=== PATIENT | female | born 1935 | race Caucasian/White ===

== ENCOUNTER 2017-07-01 17:04 | Inpatient (IN) | payer MEDICARE, MEDICAID ==
[2017-07-01 23:21] VITALS: BMI 27.7
--- NOTE | 2017-07-01 23:49 | CP.PCM.HP ---
History of Present Illness - History of Present Illness History of Present Illness: PCP: Dr Baker Chief Complaint: Confusion/ Left side headache HPI: 82 years old female of [place], here in [place] on vacation, was admitted to the [facility] on 06/25/17 with Confusion, visual hallucination and left side headache, diagnosed with left occipital stroke, was transferred to the [facility] for continued treatment and Physical therapy. She is not confused and refers no headache at present. PMH: HTN; DM I; Arthritis; HLD; Pneumonia: Diabetic Retinopathy; Overactive bladder; Asthma PSH: Cholecystectomy 2013; possible bladder lift; Left cataract surgery 05/27/17 SH: Former smoker; No ETOH; No ilegal drug use; live in [place] FH: States: No known family hx Allergies: NKDA Medication: Reviewed Present on Admission - Present on Admission Any Indicators Present on Admission: No History of DVT/PE: No History of Uncontrolled Diabetes: No Urinary Catheter: No Decubitus Ulcer Present: No Review of Systems - Constitutional Constitutional: Headache. absent: Chills, Fever - EENT Eyes: Requires Corrective Lenses. absent: Diplopia, Floaters, Sees Flashes Ears: absent: Decreased Hearing, Ear Discharge, Tinnitus Nose/Mouth/Throat: Epistaxis. absent: Nasal Congestion, Sinus Pain, Sinus Pressure, Sore Throat, Neck Mass - Cardiovascular Cardiovascular: absent: Chest Pain, Dyspnea, Edema - Respiratory Respiratory: absent: Cough, Dyspnea, Wheezing, Pain on Inspiration - Gastrointestinal Gastrointestinal: Diarrhea. absent: Abdominal Pain, Constipation, Nausea, Vomiting - Genitourinary Genitourinary: absent: Dysuria, Flank Pain, Hematuria, Urinary Frequency - Musculoskeletal Musculoskeletal: Arthralgias, Back Pain. absent: Myalgias - Integumentary Integumentary: absent: Pruritus, Rash, Skin Ulcer, Sores, Striae, Swelling - Neurological Neurological: Confusion, Dizziness, Headaches. absent: Focal Weakness - Psychiatric Psychiatric: absent: Anxiety, Depression, Panic Attacks - Endocrine Endocrine: absent: Palpitations, Polydipsia, Polyphagia, Polyuria - Hematologic/Lymphatic Hematologic: absent: Easy Bleeding, Easy Bruising Past Patient History - Infectious Disease Hx of Infectious Diseases: None - Past Medical History & Family History Past Medical History?: Yes - Past Social History Smoking Status: Former Smoker Chewing Tobacco Use: No Cigar Use: No Alcohol: None Drugs: Denies Home Situation {Lives}: With Family - CARDIAC Hx Hypercholesterolemia: Yes Hx Hypertension: Yes - PULMONARY Hx Chronic Obstructive Pulmonary Disease (COPD): Yes - NEUROLOGICAL Hx Neurological Disorder: Yes HX Cerebrovascular Accident: Yes - HEENT Hx HEENT Problems: Yes (diabetic retinopathy) - RENAL Hx Chronic Kidney Disease: Yes Other/Comment: bladder muscle dysfunction, overactive bladder - ENDOCRINE/METABOLIC Hx Diabetes Mellitus Type 2: Yes (NIDDM) - HEMATOLOGICAL/ONCOLOGICAL Hx Anemia: Yes - INTEGUMENTARY Other/Comment: nail disorder, dermal mycosis, hx of facial abcess, 1cm round scab to lle - MUSCULOSKELETAL/RHEUMATOLOGICAL Hx Falls: No - GASTROINTESTINAL Hx Gastrointestinal Disorders: Yes Hx Gall Bladder Disease: Yes (cholecystectomy) - GENITOURINARY/GYNECOLOGICAL Hx Hematuria: Yes Hx Urinary Tract Infection: Yes (multiple within the last 5 yrs) - PSYCHIATRIC Hx Psychophysiologic Disorder: No Hx Substance Use: No - SURGICAL HISTORY Hx Cataract Extraction: Yes Hx Cholecystectomy: Yes (2013) Other/Comment: possible bladder lift, daughter unsure of procedure - ANESTHESIA Hx Anesthesia: Yes Hx Anesthesia Reactions: No Hx Malignant Hyperthermia: No Meds Allergies/Adverse Reactions: Allergies Allergy/AdvReac Type Severity Reaction Status Date / Time No Known Allergies Allergy Verified 07/01/17 23:21 Physical Exam - Constitutional Appears: No Acute Distress - Head Exam Head Exam: ATRAUMATIC, NORMAL INSPECTION, NORMOCEPHALIC - Eye Exam Eye Exam: EOMI, Normal appearance - ENT Exam ENT Exam: Mucous Membranes Moist, Normal Exam, Normal External Ear Exam - Neck Exam Neck exam: Positive for: Full Rom, Normal Inspection. Negative for: Lymphadenopathy, Tenderness - Respiratory Exam Respiratory Exam: Clear to Auscultation Bilateral. absent: Rales, Rhonchi, Wheezes - Cardiovascular Exam Cardiovascular Exam: REGULAR RHYTHM, RRR, +S1, +S2. absent: Gallop - GI/Abdominal Exam GI & Abdominal Exam: Normal Bowel Sounds, Soft. absent: Mass, Organomegaly, Tenderness - Rectal Exam Rectal Exam: Deferred - Extremities Exam Extremities exam: Positive for: full ROM, normal inspection. Negative for: calf tenderness, joint swelling, pedal edema - Back Exam Back exam: NORMAL INSPECTION. absent: CVA tenderness (L), CVA tenderness (R) - Neurological Exam Neurological exam: Alert, CN II-XII Intact, Oriented x3, Reflexes Normal - Psychiatric Exam Psychiatric exam: Normal Affect, Normal Mood - Skin Skin Exam: Dry, Intact, Normal Color, Warm Results - Imaging and Cardiology CT scan - chest Status: Report reviewed by me Additional comment: Ct head 06/25/17 Negative hemorrhage. large area of cerebral edema in L occipital lobe, represent an area of infarction, however, underlying mass w/ vasogenic edema possible MRI - head Status: Report reviewed by me Additional comment: MRI brain 06/25/17 Apparent hemorrhage within L posterior temporoparietal watershed zone, restricted diffusion & small rim is surrounding vasogenic white matter edema, chronic white matter ischemic changes, few scattered chronic bilateral basal nuclei lacunar type infarcts Assessment & Plan - Assessment and Plan (Free Text) Assessment: #. Left Ocipital lobe Stroke with slight hemorhagic conversion #. DM II #. UTI #. Asthma Plan: 82 years old female of [place], admitted to the [facility] on 06/25/17 with Confusion, visual hallucination and left side headache, diagnosed with left occipital stroke, was transferred to the [facility] for continued treatment and Physical therapy. #. Left Ocipital lobe Stroke with slight hemorrhagic conversion - Consult Dr Srivastava Tip Fixer - Consult Dr Larkin neurology - Provachol - ASA #. DM II - Regular insulin according to accucheck - Metformin - HbA1c 9.6 on 06/27/17 - follow BMP #. HTN - Clonidine - Amlodipine - Lisinopril - Metoprolol - HCTZ #. UTI treated #. Stres ulcer Prophylaxis with Pepcid #. Asthma - Duoneb #. DVT Prophylaxis with SCD #. Code Status: Ful - Date & Time Date: 07/01/17 Time: 23:48
[2017-07-02] MEDS ORDERED: Albuterol-Ipratrop 3 mg / 0.5 (3 ml) UD IH PRN (00:27)
[2017-07-02 06:43] LABS: BASO % 0.3 % (0.0-2.0); HEMOGLOBIN 9.4 g/dL (12.0-16.0); LYMPH # 1.1 K/uL (1.0-4.3); MEAN CELL VOLUME 88.3 fl (81.0-99.0); MEAN CORPUSCULAR HEMOGLOBIN 28.6 pg (27.0-31.0); MEAN CORPUSCULAR HGB CONC 32.3 g/dL (33.0-37.0); MEAN PLATELET VOLUME 8.8 fl (7.2-11.7); MONO # 0.4 K/uL (0.0-0.8); MONO % 2.9 % (0.0-10.0); NEUT # 11.8 K/uL (1.8-7.0); NEUT % 88.8 % (50.0-75.0); PLATELET COUNT 212 K/uL (130-400); RED CELL DISTRIBUTION WIDTH 14.6 % (11.5-14.5); WHITE BLOOD COUNT 13.2 K/uL (4.8-10.8)
[2017-07-02 07:06] LABS: CALCIUM 8.3 mg/dL (8.4-10.2)
[2017-07-02] MEDS: Insulin Regular 100 units/ml SC SCH ×4 (07:14→21:00)
[2017-07-02 09:21] LABS: LYMPHOCYTE 7 % (20-50); MONOCYTE 2 % (0-10); NEUTROPHIL 91 % (42-75); PLATELET ESTIMATE NORMAL (NORMAL); TOTAL CELLS COUNTED 100
[2017-07-02 09:22] LABS: ANISOCYTOSIS SLIGHT; OVALOCYTES SLIGHT
--- NOTE | 2017-07-02 12:39 | CP.PCM.PN ---
Subjective - Date & Time of Evaluation Date of Evaluation: 07/02/17 Time of Evaluation: 12:37 - Subjective Subjective: Ms. Monroy was seen and examined at the bedside. She is alert, oriented and able to answer questions appropriately. She mainly speaks Romansh. She denies any headache, blurred vision, dizziness, numbness, lightheadedness, nausea, or vomiting. She is able to follow simple commands. She verbalize that she feels better with her therapy. There was no untoward events overnight. Objective - Vital Signs/Intake and Output Vital Signs (last 24 hours): Temp Pulse Resp BP Pulse Ox 97.7 F 65 20 120/70 98 07/02/17 07:46 07/02/17 10:00 07/02/17 07:46 07/02/17 10:00 07/02/17 08:50 - Medications Medications: Current Medications Albuterol/Ipratropium (Duoneb 3 Mg/0.5 Mg (3 Ml) Ud) 3 ml IH RQ6 PRN PRN Reason: Shortness of Breath Amlodipine Besylate (Norvasc) 10 mg PO DAILY [facility] Last Admin: 07/02/17 08:47 Dose: Not Given Aspirin (Aspirin Chewable) 81 mg PO DAILY [facility] Last Admin: 07/02/17 08:47 Dose: 81 mg Clonidine HCl (Catapres-Tts3 0.3 Mg/24 Hr) 1 patch TD Q7D@1000 [facility] Last Admin: 07/02/17 10:00 Dose: 1 patch Famotidine (Pepcid) 20 mg PO 1000,2200 [facility] Last Admin: 07/02/17 10:00 Dose: 20 mg Hydrochlorothiazide (Microzide) 12.5 mg PO DAILY [facility] Last Admin: 07/02/17 08:48 Dose: Not Given Insulin Detemir (Levemir) 10 units SC Q12 [facility] Insulin Human Regular (Humulin R) 0 units SC ACHS [facility] PRN Reason: Protocol Last Admin: 07/02/17 12:25 Dose: 3 units Lisinopril (Zestril) 20 mg PO DAILY [facility] Last Admin: 07/02/17 08:48 Dose: Not Given Metformin HCl (Glucophage) 1,000 mg PO BID [facility] Last Admin: 07/02/17 08:47 Dose: 1,000 mg Metoprolol Tartrate (Lopressor) 25 mg PO BID [facility] Last Admin: 07/02/17 08:49 Dose: Not Given - Labs Labs: 07/02/17 05:56 07/02/17 05:56 - Constitutional Appears: No Acute Distress - Head Exam Head Exam: NORMAL INSPECTION - Eye Exam Pupil Exam: PERRL - ENT Exam ENT Exam: Mucous Membranes Moist, Normal Exam - Neck Exam Neck Exam: Full ROM, Normal Inspection. absent: Lymphadenopathy - Respiratory Exam Respiratory Exam: Clear to Ausculation Bilateral, NORMAL BREATHING PATTERN - GI/Abdominal Exam GI & Abdominal Exam: Soft, Normal Bowel Sounds. absent: Tenderness - Rectal Exam Rectal Exam: NORMAL INSPECTION - Extremities Exam Extremities Exam: Full ROM, Normal Capillary Refill - Neurological Exam Neurological Exam: Alert, Awake, CN II-XII Intact, Oriented x3 Neuro motor strength exam: Left Upper Extremity: 4, Right Upper Extremity: 4, Left Lower Extremity: 4, Right Lower Extremity: 4 Additional comments: Neurological unchanged from previous examination.She is able to answer questions appropriately and follow simple commands. Sensation remains intact. Assessment and Plan (1) Hemianopia, homonymous, right Assessment & Plan: Case discussed with Dr. Larkin, continue all current medical, physical, and occupational therapies. There is no new recommendation from neurology. Status: Acute
--- NOTE | 2017-07-02 12:59 | CP.PCM.CON ---
History of Present Illness - History of Present Illness History of Present Illness: 82 year old female with acute Cva with hemorrhagic conversion with history of DM, HTN, CVa pneunoma admitted for acute rehab Review of Systems - EENT Eyes: Other Visual Disturbances Additional comments: headache - Neurological Neurological: Abnormal Gait, Lack of Coordination, Weakness Past Patient History - Infectious Disease Hx of Infectious Diseases: None - Past Medical History & Family History Past Medical History?: Yes - Past Social History Smoking Status: Former Smoker Chewing Tobacco Use: No Cigar Use: No Alcohol: None Drugs: Denies Home Situation {Lives}: With Family - CARDIAC Hx Hypercholesterolemia: Yes Hx Hypertension: Yes - PULMONARY Hx Chronic Obstructive Pulmonary Disease (COPD): Yes Hx Pneumonia: Yes - NEUROLOGICAL Hx Neurological Disorder: Yes HX Cerebrovascular Accident: Yes - HEENT Hx HEENT Problems: Yes (diabetic retinopathy) - RENAL Hx Chronic Kidney Disease: Yes Other/Comment: bladder muscle dysfunction, overactive bladder - ENDOCRINE/METABOLIC Hx Diabetes Mellitus Type 1: Yes - HEMATOLOGICAL/ONCOLOGICAL Hx Anemia: Yes - INTEGUMENTARY Other/Comment: nail disorder, dermal mycosis, hx of facial abcess, 1cm round scab to lle - MUSCULOSKELETAL/RHEUMATOLOGICAL Hx Arthritis: Yes - GASTROINTESTINAL Hx Gastrointestinal Disorders: Yes Hx Gall Bladder Disease: Yes (cholecystectomy) - GENITOURINARY/GYNECOLOGICAL Hx Hematuria: Yes Hx Urinary Tract Infection: Yes (multiple within the last 5 yrs) - PSYCHIATRIC Hx Psychophysiologic Disorder: No Hx Substance Use: No - SURGICAL HISTORY Hx Cataract Extraction: Yes Hx Cholecystectomy: Yes (2013) Other/Comment: possible bladder lift, daughter unsure of procedure - ANESTHESIA Hx Anesthesia: Yes Hx Anesthesia Reactions: No Hx Malignant Hyperthermia: No Meds Allergies/Adverse Reactions: Allergies Allergy/AdvReac Type Severity Reaction Status Date / Time No Known Allergies Allergy Verified 07/01/17 23:21 - Medications Medications: Current Medications Albuterol/Ipratropium (Duoneb 3 Mg/0.5 Mg (3 Ml) Ud) 3 ml IH RQ6 PRN PRN Reason: Shortness of Breath Amlodipine Besylate (Norvasc) 10 mg PO DAILY [facility] Last Admin: 07/02/17 08:47 Dose: Not Given Aspirin (Aspirin Chewable) 81 mg PO DAILY [facility] Last Admin: 07/02/17 08:47 Dose: 81 mg Clonidine HCl (Catapres-Tts3 0.3 Mg/24 Hr) 1 patch TD Q7D@1000 [facility] Last Admin: 07/02/17 10:00 Dose: 1 patch Famotidine (Pepcid) 20 mg PO 1000,2200 [facility] Last Admin: 07/02/17 10:00 Dose: 20 mg Hydrochlorothiazide (Microzide) 12.5 mg PO DAILY [facility] Last Admin: 07/02/17 08:48 Dose: Not Given Insulin Detemir (Levemir) 10 units SC Q12 [facility] Insulin Human Regular (Humulin R) 0 units SC ACHS [facility] PRN Reason: Protocol Last Admin: 07/02/17 12:25 Dose: 3 units Lisinopril (Zestril) 20 mg PO DAILY [facility] Last Admin: 07/02/17 08:48 Dose: Not Given Metformin HCl (Glucophage) 1,000 mg PO BID [facility] Last Admin: 07/02/17 08:47 Dose: 1,000 mg Metoprolol Tartrate (Lopressor) 25 mg PO BID [facility] Last Admin: 07/02/17 08:49 Dose: Not Given Physical Exam - Head Exam Head Exam: ATRAUMATIC, NORMAL INSPECTION, NORMOCEPHALIC - Eye Exam Eye Exam: EOMI, Normal appearance, PERRL Pupil Exam: NORMAL ACCOMODATION - ENT Exam ENT Exam: Mucous Membranes Moist, Normal Exam - Neck Exam Neck exam: Positive for: Normal Inspection - Respiratory Exam Respiratory Exam: Clear to Auscultation Bilateral, NORMAL BREATHING PATTERN - Cardiovascular Exam Cardiovascular Exam: REGULAR RHYTHM - GI/Abdominal Exam GI & Abdominal Exam: Normal Bowel Sounds - Rectal Exam Rectal Exam: NORMAL INSPECTION - Exam External exam: NORMAL EXTERNAL EXAM - Extremities Exam Extremities exam: Positive for: normal inspection - Back Exam Back exam: NORMAL INSPECTION - Neurological Exam Neurological exam: Alert, CN II-XII Intact - Psychiatric Exam Psychiatric exam: Normal Affect, Normal Mood - Skin Skin Exam: Dry, Intact Results - Vital Signs Recent Vital Signs: Last Vital Signs Temp 97.7 F 07/02/17 07:46 Pulse 65 07/02/17 10:00 Resp 20 07/02/17 07:46 BP 120/70 07/02/17 10:00 Pulse Ox 98 07/02/17 08:50 - Labs Result Diagrams: 07/02/17 05:56 07/02/17 05:56 Labs: Laboratory Results - last 24 hr 01/06/0707/02/17 07/02/17 05:56 05:56 06:54 WBC 13.2 H RBC 3.30 L Hgb 9.4 L Hct 29.2 L MCV 88.3 MCH 28.6 MCHC 32.3 L RDW 14.6 H Plt Count 212 MPV 8.8 Neut % (Auto) 88.8 H Lymph % (Auto) 8.0 L [place] % (Auto) 2.9 Eos % (Auto) 0.0 Baso % (Auto) 0.3 Neut # 11.8 H Lymph # 1.1 [place] # 0.4 Eos # 0.0 Baso # 0.0 Neutrophils % (Manual) 91 H Lymphocytes % (Manual) 7 L Monocytes % (Manual) 2 Platelet Estimate Normal Anisocytosis (manual) Slight Ovalocytes Slight Sodium 139 Potassium 4.6 Chloride 106 Carbon Dioxide 21 L Anion Gap 17 BUN 31 H Creatinine 1.4 H Est GFR ( Amer) 43 Est GFR (Non-Af Amer) 36 POC Glucose (mg/dL) 276 H Random Glucose 259 H Calcium 8.3 L Assessment & Plan (1) Abdominal pain Status: Acute (2) Anemia Status: Acute (3) Cerebrovascular accident Assessment and Plan: plan for physical, occuaptional rec and speech therapy program to write for overall plan for patinet Status: Acute (4) Dehydration Status: Acute (5) Headache Status: Acute (6) Hematuria Status: Acute (7) Hemianopia, homonymous, right Status: Acute Priority: High (8) Hip injury Status: Acute
--- NOTE | 2017-07-02 13:04 | PCM.OPOC ---
Physiatry Overall Plan of Care - Overall Plan of Care Estimated Length of Stay in Weeks: 3 Rehab Impairment: Mobility, Speech, Balance, Coordination Etiologic Diagnosis: Cerebrovascular Accident Rehab/Medical Prognosis: Fair - Anticipated Interventions Physical Therapy:: Yes Occupational Therapy:: Yes Speech Therapy:: Yes Recreational Therapy:: Yes - Therapy Goals Bed Mobility: Independent Ambulation: Independent Functional Positional Changes:: Independent - Functional Outcomes Functional Outcomes: fair - Discharge Plan Identification of Barriers to Discharge: Home Situation Discharge Destination: Home
[2017-07-02] MEDS: Insulin Detemir 100 Units/ml Inj SC SCH (21:39)
[2017-07-03] MEDS: Insulin Regular 100 units/ml SC SCH ×4 (06:36→21:21)
[2017-07-03] MEDS: Insulin Detemir 100 Units/ml Inj SC SCH ×2 (08:10→21:20)
[2017-07-03 08:18] LABS: HEMOGLOBIN 9.3 g/dL (12.0-16.0); MEAN CELL VOLUME 87.7 fl (81.0-99.0); RBC 3.22 Mil/uL (3.80-5.20); RED CELL DISTRIBUTION WIDTH 14.6 % (11.5-14.5)
[2017-07-03 08:36] LABS: CALCIUM 8.2 mg/dL (8.4-10.2)
[2017-07-04] MEDS: Insulin Regular 100 units/ml SC SCH ×4 (06:31→21:26)
[2017-07-04] MEDS: Insulin Detemir 100 Units/ml Inj SC SCH ×2 (08:30→21:27)
[2017-07-05] MEDS: Insulin Regular 100 units/ml SC SCH ×4 (07:27→21:43)
[2017-07-05] MEDS: Insulin Detemir 100 Units/ml Inj SC SCH (08:20)
--- NOTE | 2017-07-05 11:11 | CP.PCM.PN ---
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 Objective - Vital Signs/Intake and Output Vital Signs (last 24 hours): Temp Pulse Resp BP Pulse Ox 97.7 F 73 20 139/60 94 L 07/05/17 08:08 07/05/17 08:49 07/05/17 08:08 07/05/17 08:22 07/05/17 08:49 - Medications Medications: Current Medications Albuterol/Ipratropium (Duoneb 3 Mg/0.5 Mg (3 Ml) Ud) 3 ml IH RQ6 PRN PRN Reason: Shortness of Breath Amlodipine Besylate (Norvasc) 10 mg PO DAILY [facility] Last Admin: 07/05/17 08:21 Dose: 10 mg Aspirin (Aspirin Chewable) 81 mg PO DAILY [facility] Last Admin: 07/05/17 08:20 Dose: 81 mg Clonidine HCl (Catapres-Tts3 0.3 Mg/24 Hr) 1 patch TD Q7D@1000 [facility] Last Admin: 07/04/17 12:26 Dose: 1 patch Famotidine (Pepcid) 20 mg PO Q12 [facility] Last Admin: 07/05/17 08:22 Dose: 20 mg Hydrochlorothiazide (Microzide) 12.5 mg PO DAILY [facility] Last Admin: 07/05/17 08:21 Dose: 12.5 mg Insulin Detemir (Levemir) 10 units SC [facility] Insulin Human Regular (Humulin R) 0 units SC [facility] PRN Reason: Protocol Last Admin: 07/05/17 07:27 Dose: Not Given Lisinopril (Zestril) 20 mg PO DAILY [facility] Last Admin: 07/05/17 08:22 Dose: 20 mg Metformin HCl (Glucophage) 1,000 mg PO BID [facility] Last Admin: 07/05/17 08:20 Dose: 1,000 mg Metoprolol Tartrate (Lopressor) 25 mg PO Q12 [facility] Last Admin: 07/05/17 08:21 Dose: 25 mg - Labs Labs: 07/03/17 08:03 07/03/17 08:03 - Constitutional Appears: Non-toxic, No Acute Distress - Head Exam Head Exam: ATRAUMATIC, NORMOCEPHALIC - Eye Exam Eye Exam: EOMI, Normal appearance, PERRL - ENT Exam ENT Exam: Mucous Membranes Moist, Normal Oropharynx - Respiratory Exam Respiratory Exam: Clear to Ausculation Bilateral, NORMAL BREATHING PATTERN - Cardiovascular Exam Cardiovascular Exam: RRR, +S1, +S2 - GI/Abdominal Exam GI & Abdominal Exam: Soft, Tenderness, Normal Bowel Sounds. absent: Mass, Organomegaly - Extremities Exam Extremities Exam: Normal Capillary Refill, Normal Inspection - Back Exam Back Exam: absent: CVA tenderness (L), CVA tenderness (R) - Neurological Exam Neurological Exam: Alert, Awake - Psychiatric Exam Psychiatric exam: Normal Affect, Normal Mood Assessment and Plan - Assessment and Plan (Free Text) Plan: 82 years old female of [place], admitted to the [facility] on 06/25/17 with Confusion, visual hallucination and left side headache, diagnosed with left occipital stroke, was transferred to the [facility] for continued treatment and Physical therapy. #. Left Occipital lobe Stroke with slight hemorrhagic conversion - Consult Dr Srivastava Preparation Center Coordinator - Consult Dr Larkin neurology - Pravachol - ASA #. DM II - Regular insulin according to accucheck - Metformin - HbA1c 9.6 on 06/27/17 - follow BMP #. HTN - Clonidine - Amlodipine - Lisinopril - Metoprolol - HCTZ #. UTI treated #. Stres ulcer Prophylaxis with Pepcid #. Asthma - Duoneb #. DVT Prophylaxis with SCD #. Code Status: Ful
--- NOTE | 2017-07-05 11:47 | CP.PCM.PN ---
Subjective - Date & Time of Evaluation Date of Evaluation: 07/03/17 Time of Evaluation: 15:00 - Subjective Subjective: no acute complaints at present Objective - Vital Signs/Intake and Output Vital Signs (last 24 hours): Temp Pulse Resp BP Pulse Ox 97.7 F 73 20 139/60 94 L 07/05/17 08:08 07/05/17 08:49 07/05/17 08:08 07/05/17 08:22 07/05/17 08:49 - Medications Medications: Current Medications Albuterol/Ipratropium (Duoneb 3 Mg/0.5 Mg (3 Ml) Ud) 3 ml IH RQ6 PRN PRN Reason: Shortness of Breath Amlodipine Besylate (Norvasc) 10 mg PO DAILY [facility] Last Admin: 07/05/17 08:21 Dose: 10 mg Aspirin (Aspirin Chewable) 81 mg PO DAILY [facility] Last Admin: 07/05/17 08:20 Dose: 81 mg Clonidine HCl (Catapres-Tts3 0.3 Mg/24 Hr) 1 patch TD Q7D@1000 [facility] Last Admin: 07/04/17 12:26 Dose: 1 patch Famotidine (Pepcid) 20 mg PO Q12 [facility] Last Admin: 07/05/17 08:22 Dose: 20 mg Hydrochlorothiazide (Microzide) 12.5 mg PO DAILY [facility] Last Admin: 07/05/17 08:21 Dose: 12.5 mg Insulin Detemir (Levemir) 10 units SC HS [facility] Insulin Human Regular (Humulin R) 0 units SC ACHS [facility] PRN Reason: Protocol Last Admin: 07/05/17 11:10 Dose: Not Given Lisinopril (Zestril) 20 mg PO DAILY [facility] Last Admin: 07/05/17 08:22 Dose: 20 mg Metformin HCl (Glucophage) 1,000 mg PO BID [facility] Last Admin: 07/05/17 08:20 Dose: 1,000 mg Metoprolol Tartrate (Lopressor) 25 mg PO Q12 [facility] Last Admin: 07/05/17 08:21 Dose: 25 mg - Labs Labs: 07/03/17 08:03 07/03/17 08:03 - Head Exam Head Exam: ATRAUMATIC, NORMAL INSPECTION, NORMOCEPHALIC - Eye Exam Eye Exam: EOMI, Normal appearance Pupil Exam: NORMAL ACCOMODATION, PERRL - ENT Exam ENT Exam: Mucous Membranes Moist, Normal Exam - Neck Exam Neck Exam: Normal Inspection - Respiratory Exam Respiratory Exam: Clear to Ausculation Bilateral, NORMAL BREATHING PATTERN - Cardiovascular Exam Cardiovascular Exam: REGULAR RHYTHM - GI/Abdominal Exam GI & Abdominal Exam: Normal Bowel Sounds - Rectal Exam Rectal Exam: NORMAL INSPECTION - Exam External exam: NORMAL EXTERNAL EXAM - Extremities Exam Extremities Exam: Normal Capillary Refill, Normal Inspection - Back Exam Back Exam: NORMAL INSPECTION - Neurological Exam Neurological Exam: Alert, Awake Neuro motor strength exam: Left Upper Extremity: 3, Right Upper Extremity: 3, Left Lower Extremity: 3, Right Lower Extremity: 3 - Psychiatric Exam Psychiatric exam: Normal Affect - Skin Skin Exam: Normal Color Assessment and Plan (1) Abdominal pain Status: Acute (2) Anemia Status: Acute (3) Cerebrovascular accident Status: Acute (4) Dehydration Status: Acute (5) Headache Status: Acute (6) Hematuria Status: Acute (7) Hemianopia, homonymous, right Status: Acute (8) Hip injury Assessment & Plan: plan for physical, rec, occupational therapy program Status: Acute
--- NOTE | 2017-07-05 13:08 | CP.PCM.PN ---
Subjective - Date & Time of Evaluation Date of Evaluation: 07/05/17 Time of Evaluation: 13:05 - Subjective Subjective: Ms. Monroy was seen and examined at the therapy room. She is alert, oriented. She denies any headache, dizziness, lightheadedness, blurred vision, nause, or vomiting. She is able to follow simple commands. There was no untoward events overnight. Objective - Vital Signs/Intake and Output Vital Signs (last 24 hours): Temp Pulse Resp BP Pulse Ox 97.7 F 73 20 139/60 94 L 07/05/17 08:08 07/05/17 08:49 07/05/17 08:08 07/05/17 08:22 07/05/17 08:49 - Medications Medications: Current Medications Albuterol/Ipratropium (Duoneb 3 Mg/0.5 Mg (3 Ml) Ud) 3 ml IH RQ6 PRN PRN Reason: Shortness of Breath Amlodipine Besylate (Norvasc) 10 mg PO DAILY [facility] Last Admin: 07/05/17 08:21 Dose: 10 mg Aspirin (Aspirin Chewable) 81 mg PO DAILY [facility] Last Admin: 07/05/17 08:20 Dose: 81 mg Clonidine HCl (Catapres-Tts3 0.3 Mg/24 Hr) 1 patch TD Q7D@1000 [facility] Last Admin: 07/04/17 12:26 Dose: 1 patch Famotidine (Pepcid) 20 mg PO Q12 [facility] Last Admin: 07/05/17 08:22 Dose: 20 mg Hydrochlorothiazide (Microzide) 12.5 mg PO DAILY [facility] Last Admin: 07/05/17 08:21 Dose: 12.5 mg Insulin Detemir (Levemir) 10 units SC [facility] Insulin Human Regular (Humulin R) 0 units SC [facility] PRN Reason: Protocol Last Admin: 07/05/17 11:10 Dose: Not Given Lisinopril (Zestril) 20 mg PO DAILY [facility] Last Admin: 07/05/17 08:22 Dose: 20 mg Metformin HCl (Glucophage) 1,000 mg PO BID [facility] Last Admin: 07/05/17 08:20 Dose: 1,000 mg Metoprolol Tartrate (Lopressor) 25 mg PO Q12 [facility] Last Admin: 07/05/17 08:21 Dose: 25 mg - Labs Labs: 07/03/17 08:03 07/03/17 08:03 - Constitutional Appears: No Acute Distress - Head Exam Head Exam: NORMAL INSPECTION - Neurological Exam Neurological Exam: Alert, Awake, Oriented x3 Neuro motor strength exam: Left Upper Extremity: 4, Right Upper Extremity: 4, Left Lower Extremity: 4, Right Lower Extremity: 4 Additional comments: Neurological unchanged from previous examination. Assessment and Plan (1) Hemianopia, homonymous, right Assessment & Plan: Case discussed with Dr. Larkin, continue all current medical, physical, occupational, and speech therapies. There is no new recommendations from neurology. Status: Acute
[2017-07-06] MEDS: Insulin Regular 100 units/ml SC SCH ×4 (06:52→21:18)
--- NOTE | 2017-07-06 14:54 | CP.PCM.PN ---
Subjective - Date & Time of Evaluation Date of Evaluation: 07/05/17 Time of Evaluation: 13:00 - Subjective Subjective: NO ACUTE COMPLAINTS Objective - Vital Signs/Intake and Output Vital Signs (last 24 hours): Temp Pulse Resp BP Pulse Ox 98.1 F 73 21 141/65 95 07/06/17 08:20 07/06/17 09:38 07/06/17 08:20 07/06/17 08:20 07/06/17 08:20 - Medications Medications: Current Medications Albuterol/Ipratropium (Duoneb 3 Mg/0.5 Mg (3 Ml) Ud) 3 ml IH RQ6 PRN PRN Reason: Shortness of Breath Amlodipine Besylate (Norvasc) 10 mg PO DAILY [facility] Last Admin: 07/06/17 08:19 Dose: 10 mg Aspirin (Aspirin Chewable) 81 mg PO DAILY [facility] Last Admin: 07/06/17 08:19 Dose: 81 mg Clonidine HCl (Catapres-Tts3 0.3 Mg/24 Hr) 1 patch TD Q7D@1000 [facility] Last Admin: 07/04/17 12:26 Dose: 1 patch Famotidine (Pepcid) 20 mg PO Q12 [facility] Last Admin: 07/06/17 08:20 Dose: 20 mg Hydrochlorothiazide (Microzide) 12.5 mg PO DAILY [facility] Last Admin: 07/06/17 08:19 Dose: 12.5 mg Insulin Detemir (Levemir) 10 units SC HS [facility] Insulin Human Regular (Humulin R) 0 units SC [facility] PRN Reason: Protocol Last Admin: 07/06/17 12:43 Dose: 2 units Lisinopril (Zestril) 20 mg PO DAILY [facility] Last Admin: 07/06/17 08:20 Dose: 20 mg Metformin HCl (Glucophage) 1,000 mg PO BID [facility] Last Admin: 07/06/17 08:19 Dose: 1,000 mg Metoprolol Tartrate (Lopressor) 25 mg PO Q12 [facility] Last Admin: 07/06/17 08:19 Dose: 25 mg - Labs Labs: 07/03/17 08:03 07/03/17 08:03 - Head Exam Head Exam: ATRAUMATIC, NORMAL INSPECTION, NORMOCEPHALIC - Eye Exam Eye Exam: EOMI, Normal appearance, PERRL Pupil Exam: NORMAL ACCOMODATION - ENT Exam ENT Exam: Mucous Membranes Moist, Normal Exam - Neck Exam Neck Exam: Full ROM, Normal Inspection - Respiratory Exam Respiratory Exam: NORMAL BREATHING PATTERN - Cardiovascular Exam Cardiovascular Exam: REGULAR RHYTHM - GI/Abdominal Exam GI & Abdominal Exam: Normal Bowel Sounds - Rectal Exam Rectal Exam: NORMAL INSPECTION - Exam External exam: NORMAL EXTERNAL EXAM - Extremities Exam Extremities Exam: Full ROM, Normal Capillary Refill - Back Exam Back Exam: NORMAL INSPECTION - Neurological Exam Neurological Exam: Alert, Awake Neuro motor strength exam: Left Upper Extremity: 3, Right Upper Extremity: 3, Left Lower Extremity: 3, Right Lower Extremity: 3 - Psychiatric Exam Psychiatric exam: Normal Affect, Normal Mood - Skin Skin Exam: Dry, Intact Assessment and Plan (1) Abdominal pain Status: Acute (2) Anemia Status: Acute (3) Cerebrovascular accident Assessment & Plan: PLAN FOR PHYSICAL, OCCUPATIONAL REC THERAPY PROGRAM Status: Acute (4) Dehydration Status: Acute (5) Headache Status: Acute (6) Hematuria Status: Acute (7) Hemianopia, homonymous, right Status: Acute (8) Hip injury Status: Acute
--- NOTE | 2017-07-06 14:57 | CP.PCM.PN ---
Subjective - Date & Time of Evaluation Date of Evaluation: 07/06/17 Time of Evaluation: 14:00 - Subjective Subjective: NO ACUTE COMPLAINTS AT PRESENT Objective - Vital Signs/Intake and Output Vital Signs (last 24 hours): Temp Pulse Resp BP Pulse Ox 98.1 F 73 21 141/65 95 07/06/17 08:20 07/06/17 09:38 07/06/17 08:20 07/06/17 08:20 07/06/17 08:20 - Medications Medications: Current Medications Albuterol/Ipratropium (Duoneb 3 Mg/0.5 Mg (3 Ml) Ud) 3 ml IH RQ6 PRN PRN Reason: Shortness of Breath Amlodipine Besylate (Norvasc) 10 mg PO DAILY [facility] Last Admin: 07/06/17 08:19 Dose: 10 mg Aspirin (Aspirin Chewable) 81 mg PO DAILY [facility] Last Admin: 07/06/17 08:19 Dose: 81 mg Clonidine HCl (Catapres-Tts3 0.3 Mg/24 Hr) 1 patch TD Q7D@1000 [facility] Last Admin: 07/04/17 12:26 Dose: 1 patch Famotidine (Pepcid) 20 mg PO Q12 [facility] Last Admin: 07/06/17 08:20 Dose: 20 mg Hydrochlorothiazide (Microzide) 12.5 mg PO DAILY [facility] Last Admin: 07/06/17 08:19 Dose: 12.5 mg Insulin Detemir (Levemir) 10 units SC HS [facility] Insulin Human Regular (Humulin R) 0 units SC [facility] PRN Reason: Protocol Last Admin: 07/06/17 12:43 Dose: 2 units Lisinopril (Zestril) 20 mg PO DAILY [facility] Last Admin: 07/06/17 08:20 Dose: 20 mg Metformin HCl (Glucophage) 1,000 mg PO BID [facility] Last Admin: 07/06/17 08:19 Dose: 1,000 mg Metoprolol Tartrate (Lopressor) 25 mg PO Q12 [facility] Last Admin: 07/06/17 08:19 Dose: 25 mg - Labs Labs: 07/03/17 08:03 07/03/17 08:03 - Head Exam Head Exam: ATRAUMATIC, NORMAL INSPECTION, NORMOCEPHALIC - Eye Exam Eye Exam: EOMI, Normal appearance, PERRL Pupil Exam: NORMAL ACCOMODATION - ENT Exam ENT Exam: Mucous Membranes Moist, Normal Exam - Neck Exam Neck Exam: Normal Inspection - Respiratory Exam Respiratory Exam: NORMAL BREATHING PATTERN - Cardiovascular Exam Cardiovascular Exam: REGULAR RHYTHM - GI/Abdominal Exam GI & Abdominal Exam: Soft, Normal Bowel Sounds - Rectal Exam Rectal Exam: NORMAL INSPECTION - Exam External exam: NORMAL EXTERNAL EXAM - Extremities Exam Extremities Exam: Full ROM, Normal Capillary Refill - Back Exam Back Exam: NORMAL INSPECTION - Neurological Exam Neurological Exam: Alert, Awake Neuro motor strength exam: Left Upper Extremity: 3, Right Upper Extremity: 3, Left Lower Extremity: 3, Right Lower Extremity: 3 - Psychiatric Exam Psychiatric exam: Normal Affect, Normal Mood - Skin Skin Exam: Normal Color Assessment and Plan (1) Abdominal pain Status: Acute (2) Anemia Status: Acute (3) Cerebrovascular accident Assessment & Plan: PLAN FOR PHYSICAL, OCCUPATIONAL, REC THERAPY FOR ROM, STRENGHTENING, TRANSFERS AND GAIT TRAINING Status: Acute (4) Dehydration Status: Acute (5) Headache Status: Acute (6) Hematuria Status: Acute (7) Hemianopia, homonymous, right Status: Acute (8) Hip injury Status: Acute
[2017-07-06] MEDS: Insulin Detemir 100 Units/ml Inj SC SCH (21:18)
[2017-07-07] MEDS: Insulin Regular 100 units/ml SC SCH ×4 (06:35→21:23)
--- NOTE | 2017-07-07 10:47 | CP.PCM.PN ---
Subjective - Date & Time of Evaluation Date of Evaluation: 07/07/17 Time of Evaluation: 10:45 - Subjective Subjective: Ms. odell was seen and examined at the bedside. She is alert, oriented , and able to answer questions appropriately. She follows simple commands. She states of having good time during therapy. She remains on telesitter for patient safety. Objective - Vital Signs/Intake and Output Vital Signs (last 24 hours): Temp Pulse Resp BP Pulse Ox 98.4 F 65 20 112/59 L 98 07/07/17 08:46 07/07/17 08:58 07/07/17 08:46 07/07/17 08:58 07/07/17 08:46 - Medications Medications: Current Medications Albuterol/Ipratropium (Duoneb 3 Mg/0.5 Mg (3 Ml) Ud) 3 ml IH RQ6 PRN PRN Reason: Shortness of Breath Amlodipine Besylate (Norvasc) 10 mg PO DAILY [facility] Last Admin: 07/07/17 08:47 Dose: Not Given Aspirin (Aspirin Chewable) 81 mg PO DAILY [facility] Last Admin: 07/07/17 08:47 Dose: 81 mg Clonidine HCl (Catapres-Tts3 0.3 Mg/24 Hr) 1 patch TD Q7D@1000 [facility] Last Admin: 07/04/17 12:26 Dose: 1 patch Famotidine (Pepcid) 20 mg PO Q12 [facility] Last Admin: 07/07/17 08:47 Dose: 20 mg Hydrochlorothiazide (Microzide) 12.5 mg PO DAILY [facility] Last Admin: 07/07/17 08:59 Dose: Not Given Insulin Detemir (Levemir) 10 units SC HS [facility] Last Admin: 07/06/17 21:18 Dose: 10 units Insulin Human Regular (Humulin R) 0 units SC ACHS [facility] PRN Reason: Protocol Last Admin: 07/07/17 06:35 Dose: Not Given Lisinopril (Zestril) 20 mg PO DAILY [facility] Last Admin: 07/07/17 08:48 Dose: Not Given Metformin HCl (Glucophage) 1,000 mg PO BID [facility] Last Admin: 07/07/17 08:47 Dose: 1,000 mg Metoprolol Tartrate (Lopressor) 25 mg PO Q12 [facility] Last Admin: 07/07/17 08:58 Dose: Not Given - Labs Labs: 07/03/17 08:03 07/03/17 08:03 - Constitutional Appears: No Acute Distress - Head Exam Head Exam: NORMAL INSPECTION - Neurological Exam Neurological Exam: Alert, Awake Neuro motor strength exam: Left Upper Extremity: 4, Right Upper Extremity: 4, Left Lower Extremity: 4, Right Lower Extremity: 4 Additional comments: Neurological unchanged form previous examination. Assessment and Plan (1) Hemianopia, homonymous, right Assessment & Plan: Case discussed with Dr. Larkin, continue all currentr medical, physical, occupational, and speech therapies. There is no new recommendations from neurology. Status: Acute
--- NOTE | 2017-07-07 12:14 | PSY.TMCNF ---
Nursing - Vital Signs Vital Signs (Last 8 hours): Vital Signs 07/07/17 07/07/17 07/07/17 08:46 08:47 08:48 Temperature 98.4 F Pulse Rate 65 69 65 Respiratory 20 Rate Blood Pressure 112/59 L 112/59 L 112/59 L O2 Sat by Pulse 98 Oximetry 07/07/17 08:58 Temperature Pulse Rate 65 Respiratory Rate Blood Pressure 112/59 L O2 Sat by Pulse Oximetry Pain: 0 - Medications/Other Issues Comment: Pt at moderate nutritional risk. goals: Pt to consume at least 50-75% meals without GI upset x 5-7 days. Pt weight to remain stable within 2-3# x 5- 7 days. Pt to have nutrition-related labs to trend WNL (Glucose controlled 80- 180, no hypoglycemia, Renal labs to trend to baseline) x 5-7 days. Follow-up due on 07/11/2017 - Bladder Management Bladder Pattern: Normal Voiding Method: Toilet - Bowel Management Bowel Pattern: Normal - Goals/Time Frame Comments: Pt was seen awake and alert sitting in her wheelchair in her room. Pt agreeable to visit. [employer] video translation utilized, Loretta, #[id number]. Pt's two daughters present in room as well. Pt was able to identify her leisure interests. Pt reported that she enjoys cooking, watching television, playing bingo, and enjoys doing crossword puzzles. Pt lives alone, has two daughters that live nearby that check in on pt when pt is home in [place]. Pt's other daughter lives in [place] and was visiting daughter prior to hospitalization. Pt participated in bingo task with peers and demonstrated increase number recognition, pt's daughter present to provide verbal cues for visual scanning. Pt did well with task. Pt presents with hearing deficits and slight visual deficits. Pt will be encouraged to participate in recreation therapy sessions throughout stay on unit. Physical Therapy - Bed Mobility Bed Mobility: Supervision - Transfers Wheelchair to Mat: Supervision, Verbal Cues Sit to Stand: Supervision, Verbal Cues - Ambulation Level of Assistance: Verbal Cues, Contact Guard Distance (ft.): 200 Assistive Devices: N/A - Stair Negotiation Stairs: Level of Assistance: Verbal Cues, Contact Guard Number of Stairs: 12 Stairs: Assistive Devices: Left Handrail - Standing Balance Static Stand: Supervision Dynamic Stand: Contact Guard Assist - Pain Pain (assessed during therapy session): 0 - Insight/Carryover Insight/Carryover: Good - Patient/Family Education Comment: Pt education provided for increased safety awareness and proper techniques during functional mobility training. - Assessment/Plan Assessment: Pt is agreeable to participate in 1:1 and group recreation therapy sessions throughout her stay on unit. Pt enjoys playing bingo and is independent with task although requires repetition of numbers called out 2' hearing deficits. Pt is oriented to modified suellen card task and required min verbal cues for direction following and carryover of task rules. Pt would continue to benefit from recreation therapy to improve arousal level and direction following. - Goals Timeframe: 10 days Goals: Sit < > supine (I). Sit < > stand transfers (I). Pt will ambulate 500 ft on even/uneven surfaces (I)/mod (I). Pt will ascend/descend flight of stairs mod I with hnadrail - Provider Therapist: Nina Martin PT DPT License Number: [id number] Occupational Therapy - Arousal/Attention/Orientation Patient Orientation: Person, Place, Time, Appropriate to Age, Appropriate to Situation - ADL/IADL Self Feeding: Set-up Help Grooming: Supervision, Verbal Cues, Set-up Help Bathing-Upper Extremity: Supervision, Verbal Cues, Set-up Help Bathing-Lower Extremity: Verbal Cues, Set-up Help, Contact Guard Dressing-Upper Extremity: Supervision, Verbal Cues, Set-up Help Dressing-Lower Extremity: Verbal Cues, Set-up Help, Contact Guard Comment: showering: to be assessed - Sitting Balance Static Sitting: Independent without upper extremity support Dynamic Sitting: Reaches across midline, Reaches out of base of support, Reaches within base of support, Requires supervision Comment: unsupported at edge of bed - Transfers Wheelchair to Bed Transfers: Supervision, Verbal Cues, Set-up Help, Contact Guard Toilet Transfers: Supervision, Verbal Cues, Set-up Help, Contact Guard Comment: shower transfers: TBA - Wheelchair Management Level of Assistance: Not Applicable - Upper Extremity Status Right Upper Extremity Comment: AROM is WFLS; strength 4/5 Left Upper Extremity Comment: AROM is WFLS; strength 4/5 - Pain Pain (assessed during therapy session): 0 - Insight/Carryover Insight/Carryover: Good - Patient/Family Education Comment: Pt education provided for increased safety awareness and proper techniques during functional mobility training. - Assessment/Plan Assessment: Pt is agreeable to participate in 1:1 and group recreation therapy sessions throughout her stay on unit. Pt enjoys playing bingo and is independent with task although requires repetition of numbers called out 2' hearing deficits. Pt is oriented to modified suellen card task and required min verbal cues for direction following and carryover of task rules. Pt would continue to benefit from recreation therapy to improve arousal level and direction following. - Goals Timeframe: 10 days Goals: Sit < > supine (I). Sit < > stand transfers (I). Pt will ambulate 500 ft on even/uneven surfaces (I)/mod (I). Pt will ascend/descend flight of stairs mod I with hnadrail - Provider Therapist: Cathy Serna OTR/L Speech Therapy - Consult Information Patient on Program: Yes Medical Diagnosis: CVA Treatment Diagnosis: mild-moderate cognitive deficits - Assessment Problem Solving Impairment: Mild Memory Impairment: Moderate - Plan Assessment: Pt is agreeable to participate in 1:1 and group recreation therapy sessions throughout her stay on unit. Pt enjoys playing bingo and is independent with task although requires repetition of numbers called out 2' hearing deficits. Pt is oriented to modified suellen card task and required min verbal cues for direction following and carryover of task rules. Pt would continue to benefit from recreation therapy to improve arousal level and direction following. - Provider Therapist: Eva Valente License Number: [id number] Recreational Therapy - Participation Participation: Participates in Individual and/or Group Sessions - Attendance Attendance: 3-5 times per week - Activities Leisure Activities: Cards and Games - Socialization Level of Socialization: Initiates/interacts freely with care givers and peer - Diversional Time Diversional Time: television, socializing, likes bingo - Assessment Assessment/Plan: Pt is agreeable to participate in 1:1 and group recreation therapy sessions throughout her stay on unit. Pt enjoys playing bingo and is independent with task although requires repetition of numbers called out 2' hearing deficits. Pt is oriented to modified suellen card task and required min verbal cues for direction following and carryover of task rules. Pt would continue to benefit from recreation therapy to improve arousal level and direction following. Problems Currently Limiting Participation: hard of hearing, decrease arousal level, forgetfulness, decrease safety Goals and Time Frame: Pt will be encouraged to participate in 1:1 and group recreation therapy sessions 3-5x week to improve leisure awareness level, attention to task, direction following, and arousal level. - Provider Therapist: Nina Borges, INVENTORY CHECKER #[id number] Nutrition - Current Diet Current Diet/ Supplement/ Feedings: Moderate consistent CHO Heart healthy: 2 gram Na diet soft diet - Appetite Percent Meal Consumed: 75-100% - Assessment/Goals/Time Frame Assessment/Goals/Time Frame: Pt at moderate nutritional risk. goals: Pt to consume at least 50-75% meals without GI upset x 5-7 days. Pt weight to remain stable within 2-3# x 5-7 days. Pt to have nutrition-related labs to trend WNL ( Glucose controlled 80-180, no hypoglycemia, Renal labs to trend to baseline) x 5 -7 days. Follow-up due on 07/11/2017 - Provider Provider: Maira Lambert RD Case Management - Discharge Plan Discharge Plan: Home with significant other/family Rehabilitation Plan - Treatment Plan Treatment Plan: Occupational Therapy, Dietary, Patient/Family Education - Recommendation Recommendation: Physical Therapy, Occupational Therapy, Dietary, Patient/Family Education - Discharge Plan Discharge to: Home (23)
--- NOTE | 2017-07-07 13:28 | CP.PCM.PN ---
Subjective - Date & Time of Evaluation Date of Evaluation: 07/07/17 Time of Evaluation: 11:00 - Subjective Subjective: no acute complaints Objective - Vital Signs/Intake and Output Vital Signs (last 24 hours): Temp Pulse Resp BP Pulse Ox 98.4 F 65 20 112/59 L 98 07/07/17 08:46 07/07/17 08:58 07/07/17 08:46 07/07/17 08:58 07/07/17 08:46 - Medications Medications: Current Medications Albuterol/Ipratropium (Duoneb 3 Mg/0.5 Mg (3 Ml) Ud) 3 ml IH RQ6 PRN PRN Reason: Shortness of Breath Amlodipine Besylate (Norvasc) 10 mg PO DAILY [facility] Last Admin: 07/07/17 08:47 Dose: Not Given Aspirin (Aspirin Chewable) 81 mg PO DAILY [facility] Last Admin: 07/07/17 08:47 Dose: 81 mg Clonidine HCl (Catapres-Tts3 0.3 Mg/24 Hr) 1 patch TD Q7D@1000 [facility] Last Admin: 07/04/17 12:26 Dose: 1 patch Famotidine (Pepcid) 20 mg PO Q12 [facility] Last Admin: 07/07/17 08:47 Dose: 20 mg Hydrochlorothiazide (Microzide) 12.5 mg PO DAILY [facility] Last Admin: 07/07/17 08:59 Dose: Not Given Insulin Detemir (Levemir) 10 units SC HS [facility] Last Admin: 07/06/17 21:18 Dose: 10 units Insulin Human Regular (Humulin R) 0 units SC [facility] PRN Reason: Protocol Last Admin: 07/07/17 12:00 Dose: Not Given Lisinopril (Zestril) 20 mg PO DAILY [facility] Last Admin: 07/07/17 08:48 Dose: Not Given Metformin HCl (Glucophage) 1,000 mg PO BID [facility] Last Admin: 07/07/17 08:47 Dose: 1,000 mg Metoprolol Tartrate (Lopressor) 25 mg PO Q12 [facility] Last Admin: 07/07/17 08:58 Dose: Not Given - Labs Labs: 07/03/17 08:03 07/03/17 08:03 - Head Exam Head Exam: ATRAUMATIC, NORMAL INSPECTION, NORMOCEPHALIC - Eye Exam Eye Exam: EOMI, Normal appearance, PERRL Pupil Exam: NORMAL ACCOMODATION - ENT Exam ENT Exam: Mucous Membranes Moist, Normal Exam - Neck Exam Neck Exam: Normal Inspection - Respiratory Exam Respiratory Exam: NORMAL BREATHING PATTERN - Cardiovascular Exam Cardiovascular Exam: REGULAR RHYTHM - GI/Abdominal Exam GI & Abdominal Exam: Soft, Normal Bowel Sounds - Rectal Exam Rectal Exam: NORMAL INSPECTION - Exam External exam: NORMAL EXTERNAL EXAM - Extremities Exam Extremities Exam: Full ROM, Normal Capillary Refill, Normal Inspection - Back Exam Back Exam: NORMAL INSPECTION - Neurological Exam Neurological Exam: Alert, Awake Neuro motor strength exam: Left Upper Extremity: 3, Right Upper Extremity: 3, Left Lower Extremity: 3, Right Lower Extremity: 3 - Psychiatric Exam Psychiatric exam: Normal Affect, Normal Mood - Skin Skin Exam: Dry, Intact Assessment and Plan (1) Abdominal pain Status: Acute (2) Anemia Status: Acute (3) Cerebrovascular accident Assessment & Plan: plan for pt, ot therapy team conferecne Dc 23 Status: Acute (4) Dehydration Status: Acute (5) Headache Status: Acute (6) Hematuria Status: Acute (7) Hemianopia, homonymous, right Status: Acute (8) Hip injury Status: Acute
--- NOTE | 2017-07-07 14:28 | CP.PCM.PN ---
Subjective - Date & Time of Evaluation Date of Evaluation: 07/07/17 Time of Evaluation: 11:40 - Subjective Subjective: Pt seen and examined. Denied any complaint. Doing well with PT Objective - Vital Signs/Intake and Output Vital Signs (last 24 hours): Temp Pulse Resp BP Pulse Ox 98.4 F 65 20 112/59 L 98 07/07/17 08:46 07/07/17 08:58 07/07/17 08:46 07/07/17 08:58 07/07/17 08:46 - Medications Medications: Current Medications Albuterol/Ipratropium (Duoneb 3 Mg/0.5 Mg (3 Ml) Ud) 3 ml IH RQ6 PRN PRN Reason: Shortness of Breath Amlodipine Besylate (Norvasc) 10 mg PO DAILY [facility] Last Admin: 07/07/17 08:47 Dose: Not Given Aspirin (Aspirin Chewable) 81 mg PO DAILY [facility] Last Admin: 07/07/17 08:47 Dose: 81 mg Clonidine HCl (Catapres-Tts3 0.3 Mg/24 Hr) 1 patch TD Q7D@1000 [facility] Last Admin: 07/04/17 12:26 Dose: 1 patch Famotidine (Pepcid) 20 mg PO Q12 [facility] Last Admin: 07/07/17 08:47 Dose: 20 mg Hydrochlorothiazide (Microzide) 12.5 mg PO DAILY [facility] Last Admin: 07/07/17 08:59 Dose: Not Given Insulin Detemir (Levemir) 10 units SC HS [facility] Last Admin: 07/06/17 21:18 Dose: 10 units Insulin Human Regular (Humulin R) 0 units SC [facility] PRN Reason: Protocol Last Admin: 07/07/17 12:00 Dose: Not Given Lisinopril (Zestril) 20 mg PO DAILY [facility] Last Admin: 07/07/17 08:48 Dose: Not Given Metformin HCl (Glucophage) 1,000 mg PO BID [facility] Last Admin: 07/07/17 08:47 Dose: 1,000 mg Metoprolol Tartrate (Lopressor) 25 mg PO Q12 [facility] Last Admin: 07/07/17 08:58 Dose: Not Given - Labs Labs: 07/03/17 08:03 07/03/17 08:03 - Constitutional Appears: No Acute Distress - Head Exam Head Exam: ATRAUMATIC - Eye Exam Eye Exam: absent: Scleral icterus - ENT Exam ENT Exam: Mucous Membranes Moist - Neck Exam Neck Exam: absent: Meningismus - Respiratory Exam Respiratory Exam: absent: Rhonchi, Wheezes, Respiratory Distress - Cardiovascular Exam Cardiovascular Exam: REGULAR RHYTHM, +S1, +S2 - GI/Abdominal Exam GI & Abdominal Exam: Soft. absent: Tenderness - Rectal Exam Rectal Exam: Deferred - Extremities Exam Extremities Exam: absent: Tenderness - Neurological Exam Neurological Exam: Alert, Oriented x3 - Psychiatric Exam Psychiatric exam: Normal Affect - Skin Skin Exam: Dry, Intact Assessment and Plan - Assessment and Plan (Free Text) Assessment: 82 yo female resident of [place] here in [place] on vacation was admitted to [facility] on 06/25/17 because of confusion, visual hallucination and left sided headache. She was diagnosed with left occipital CVA when CT and MRI showed left occipital infarct. She was transferred to Acute Rehab for continue management PT. 1. Left Occipital CVA continue statin and ASA continue PT Dr Srivastava on physiatry consult Dr Larkin on neuro service 2. DMII relatively controlled continue Levemir and Metformin 3. HTN BP stable but on the low side continue Clonidine patch, HCTZ, Lisinopril and Metoprolol DC Amlodipine 4. DVt prophylaxis continue Lovenox
[2017-07-07] MEDS: Insulin Detemir 100 Units/ml Inj SC SCH (21:33)
[2017-07-08] MEDS: Insulin Regular 100 units/ml SC SCH ×4 (06:30→21:00)
--- NOTE | 2017-07-08 10:24 | CP.PCM.PN ---
Subjective - Date & Time of Evaluation Date of Evaluation: 07/08/17 Time of Evaluation: 10:21 - Subjective Subjective: Ms. Monroy was seen and examined at the bedside. She is alert, oriented, speaks mainly Lao. She is able to answer questions appropriately and follow simple commands. She remains on telesitter for patient safety. There was no untoward events overnight. Objective - Vital Signs/Intake and Output Vital Signs (last 24 hours): Temp Pulse Resp BP Pulse Ox 97.9 F 71 21 130/60 97 07/08/17 09:14 07/08/17 09:14 07/08/17 09:14 07/08/17 09:14 07/08/17 09:14 - Medications Medications: Current Medications Albuterol/Ipratropium (Duoneb 3 Mg/0.5 Mg (3 Ml) Ud) 3 ml IH RQ6 PRN PRN Reason: Shortness of Breath Aspirin (Aspirin Chewable) 81 mg PO DAILY [facility] Last Admin: 07/08/17 08:26 Dose: 81 mg Clonidine HCl (Catapres-Tts3 0.3 Mg/24 Hr) 1 patch TD Q7D@1000 [facility] Last Admin: 07/04/17 12:26 Dose: 1 patch Famotidine (Pepcid) 20 mg PO Q12 [facility] Last Admin: 07/08/17 08:27 Dose: 20 mg Hydrochlorothiazide (Microzide) 12.5 mg PO DAILY [facility] Last Admin: 07/08/17 08:27 Dose: 12.5 mg Insulin Detemir (Levemir) 10 units SC HS [facility] Last Admin: 07/07/17 21:33 Dose: 10 units Insulin Human Regular (Humulin R) 0 units SC ACHS [facility] PRN Reason: Protocol Last Admin: 07/08/17 06:30 Dose: Not Given Lisinopril (Zestril) 20 mg PO DAILY [facility] Last Admin: 07/08/17 08:27 Dose: 20 mg Metformin HCl (Glucophage) 1,000 mg PO BID [facility] Last Admin: 07/08/17 08:26 Dose: 1,000 mg Metoprolol Tartrate (Lopressor) 25 mg PO Q12 [facility] Last Admin: 07/08/17 08:27 Dose: 25 mg - Labs Labs: 07/03/17 08:03 07/03/17 08:03 - Constitutional Appears: No Acute Distress - Head Exam Head Exam: NORMAL INSPECTION - Neurological Exam Neurological Exam: Alert, Awake, Oriented x3 Neuro motor strength exam: Left Upper Extremity: 5, Right Upper Extremity: 5, Left Lower Extremity: 5, Right Lower Extremity: 5 Additional comments: Neurological unchanged form previous examination. Assessment and Plan (1) Hemianopia, homonymous, right Assessment & Plan: Case discussed with Dr. Larkin, continue all current medical, physical, occupational, and speech therapies. Status: Acute
[2017-07-08] MEDS: Insulin Detemir 100 Units/ml Inj SC SCH (21:28)
[2017-07-09] MEDS: Insulin Regular 100 units/ml SC SCH ×4 (06:59→21:07)
--- NOTE | 2017-07-09 11:57 | CP.PCM.PN ---
Subjective - Date & Time of Evaluation Date of Evaluation: 07/09/17 Time of Evaluation: 11:54 - Subjective Subjective: Ms. Monroy was seen and examined at the bedside. She is alert, oriented but speaks mainly Hungarian. She is able to answer some questions and follow commands. She states that she still has the episode of forgetfulness. She further states that her right eye vision remains the same since admission.She remains on telesitter for patient safety. Objective - Vital Signs/Intake and Output Vital Signs (last 24 hours): Temp Pulse Resp BP Pulse Ox 98.8 F 67 20 132/68 98 07/09/17 08:03 07/09/17 08:14 07/09/17 08:03 07/09/17 08:14 07/09/17 08:03 - Medications Medications: Current Medications Albuterol/Ipratropium (Duoneb 3 Mg/0.5 Mg (3 Ml) Ud) 3 ml IH RQ6 PRN PRN Reason: Shortness of Breath Aspirin (Aspirin Chewable) 81 mg PO DAILY [facility] Last Admin: 07/09/17 08:13 Dose: 81 mg Clonidine HCl (Catapres-Tts3 0.3 Mg/24 Hr) 1 patch TD Q7D@1000 [facility] Last Admin: 07/04/17 12:26 Dose: 1 patch Famotidine (Pepcid) 20 mg PO Q12 [facility] Last Admin: 07/09/17 08:14 Dose: 20 mg Hydrochlorothiazide (Microzide) 12.5 mg PO DAILY [facility] Last Admin: 07/09/17 08:14 Dose: 12.5 mg Insulin Detemir (Levemir) 10 units SC HS [facility] Last Admin: 07/08/17 21:28 Dose: 10 units Insulin Human Regular (Humulin R) 0 units SC [facility] PRN Reason: Protocol Last Admin: 07/09/17 11:28 Dose: Not Given Lisinopril (Zestril) 20 mg PO DAILY [facility] Last Admin: 07/09/17 08:14 Dose: 20 mg Metformin HCl (Glucophage) 1,000 mg PO BID [facility] Last Admin: 07/09/17 08:13 Dose: 1,000 mg Metoprolol Tartrate (Lopressor) 25 mg PO Q12 [facility] Last Admin: 07/09/17 08:14 Dose: 25 mg - Labs Labs: 07/03/17 08:03 07/03/17 08:03 - Constitutional Appears: No Acute Distress - Head Exam Head Exam: NORMAL INSPECTION - Neurological Exam Neurological Exam: Alert, Awake Neuro motor strength exam: Left Upper Extremity: 5, Right Upper Extremity: 5, Left Lower Extremity: 5, Right Lower Extremity: 5 Additional comments: Neurological unchanged from previous examination. Assessment and Plan (1) Hemianopia, homonymous, right Assessment & Plan: Case discussed with Dr. Larkin, continue all current medical, physical, occupational, and speech therapy. If the right eye vision worsen to consult an opthalmology and repeat CT of the head without contrast. Status: Acute
--- NOTE | 2017-07-09 13:36 | CP.PCM.PN ---
Subjective - Date & Time of Evaluation Date of Evaluation: 07/09/17 Time of Evaluation: 13:00 - Subjective Subjective: no acute complaints Objective - Vital Signs/Intake and Output Vital Signs (last 24 hours): Temp Pulse Resp BP Pulse Ox 98.8 F 67 20 132/68 98 07/09/17 08:03 07/09/17 08:14 07/09/17 08:03 07/09/17 08:14 07/09/17 08:03 - Medications Medications: Current Medications Albuterol/Ipratropium (Duoneb 3 Mg/0.5 Mg (3 Ml) Ud) 3 ml IH RQ6 PRN PRN Reason: Shortness of Breath Aspirin (Aspirin Chewable) 81 mg PO DAILY [facility] Last Admin: 07/09/17 08:13 Dose: 81 mg Clonidine HCl (Catapres-Tts3 0.3 Mg/24 Hr) 1 patch TD Q7D@1000 [facility] Last Admin: 07/04/17 12:26 Dose: 1 patch Famotidine (Pepcid) 20 mg PO Q12 [facility] Last Admin: 07/09/17 08:14 Dose: 20 mg Hydrochlorothiazide (Microzide) 12.5 mg PO DAILY [facility] Last Admin: 07/09/17 08:14 Dose: 12.5 mg Insulin Detemir (Levemir) 10 units SC [facility] Last Admin: 07/08/17 21:28 Dose: 10 units Insulin Human Regular (Humulin R) 0 units SC [facility] PRN Reason: Protocol Last Admin: 07/09/17 11:28 Dose: Not Given Lisinopril (Zestril) 20 mg PO DAILY [facility] Last Admin: 07/09/17 08:14 Dose: 20 mg Metformin HCl (Glucophage) 1,000 mg PO BID [facility] Last Admin: 07/09/17 08:13 Dose: 1,000 mg Metoprolol Tartrate (Lopressor) 25 mg PO Q12 [facility] Last Admin: 07/09/17 08:14 Dose: 25 mg - Labs Labs: 07/03/17 08:03 07/03/17 08:03 - Head Exam Head Exam: ATRAUMATIC, NORMAL INSPECTION, NORMOCEPHALIC - Eye Exam Eye Exam: EOMI, Normal appearance, PERRL Pupil Exam: NORMAL ACCOMODATION - ENT Exam ENT Exam: Mucous Membranes Moist, Normal Exam - Neck Exam Neck Exam: Full ROM, Normal Inspection - Respiratory Exam Respiratory Exam: NORMAL BREATHING PATTERN - Cardiovascular Exam Cardiovascular Exam: REGULAR RHYTHM - GI/Abdominal Exam GI & Abdominal Exam: Normal Bowel Sounds - Rectal Exam Rectal Exam: NORMAL INSPECTION - Exam External exam: NORMAL EXTERNAL EXAM - Extremities Exam Extremities Exam: Full ROM, Normal Capillary Refill - Back Exam Back Exam: NORMAL INSPECTION - Neurological Exam Neurological Exam: Alert, Awake Neuro motor strength exam: Left Upper Extremity: 3, Right Upper Extremity: 3, Left Lower Extremity: 3, Right Lower Extremity: 3 - Psychiatric Exam Psychiatric exam: Normal Affect, Normal Mood - Skin Skin Exam: Dry, Intact Assessment and Plan (1) Abdominal pain Status: Acute (2) Anemia Status: Acute (3) Cerebrovascular accident Assessment & Plan: plan for Pt, Ot therapy program Status: Acute (4) Dehydration Status: Acute (5) Headache Status: Acute (6) Hematuria Status: Acute (7) Hemianopia, homonymous, right Status: Acute (8) Hip injury Status: Acute
--- NOTE | 2017-07-09 18:03 | CP.PCM.PN ---
Subjective - Date & Time of Evaluation Date of Evaluation: 07/09/17 Time of Evaluation: 12:00 - Subjective Subjective: Patient was seen and examined during physical therapy. She has no new complaints. Speaks mostly maori. Hemodynamically stable, afebrile. Denies cp, sob, nausea, or vomiting. Objective - Vital Signs/Intake and Output Vital Signs (last 24 hours): Temp Pulse Resp BP Pulse Ox 98.8 F 67 20 132/68 98 07/09/17 08:03 07/09/17 08:14 07/09/17 08:03 07/09/17 08:14 07/09/17 08:03 - Medications Medications: Current Medications Albuterol/Ipratropium (Duoneb 3 Mg/0.5 Mg (3 Ml) Ud) 3 ml IH RQ6 PRN PRN Reason: Shortness of Breath Aspirin (Aspirin Chewable) 81 mg PO DAILY [facility] Last Admin: 07/09/17 08:13 Dose: 81 mg Clonidine HCl (Catapres-Tts3 0.3 Mg/24 Hr) 1 patch TD Q7D@1000 [facility] Last Admin: 07/04/17 12:26 Dose: 1 patch Famotidine (Pepcid) 20 mg PO Q12 [facility] Last Admin: 07/09/17 08:14 Dose: 20 mg Hydrochlorothiazide (Microzide) 12.5 mg PO DAILY [facility] Last Admin: 07/09/17 08:14 Dose: 12.5 mg Insulin Detemir (Levemir) 10 units SC HS [facility] Last Admin: 07/08/17 21:28 Dose: 10 units Insulin Human Regular (Humulin R) 0 units SC ACHS [facility] PRN Reason: Protocol Last Admin: 07/09/17 17:34 Dose: 1 units Lisinopril (Zestril) 20 mg PO DAILY [facility] Last Admin: 07/09/17 08:14 Dose: 20 mg Metformin HCl (Glucophage) 1,000 mg PO BID [facility] Last Admin: 07/09/17 17:34 Dose: 1,000 mg Metoprolol Tartrate (Lopressor) 25 mg PO Q12 [facility] Last Admin: 07/09/17 08:14 Dose: 25 mg - Labs Labs: 07/03/17 08:03 07/03/17 08:03 - Additional Findings Additional findings: Physical exam: Constitutional- cooperative, awake, alert Head- NCAT, PERRL Eye- PERRL, EOMI ENT- normal exam, MMM. Neck- normal inspection, supple, no JVD Respiratory- CTAB, no wheezes rales rhonchi Cardiovascular- RRR, +S1, +S2 no MRG GI/Abdominal- normal bowel sounds, soft, no mass, no hsm Skin- warm, dry Extremities Exam- normal capillary refill, normal inspection Neurological Exam- alert, awake, oriented Psych- normal mood, normal affect Assessment and Plan - Assessment and Plan (Free Text) Plan: 82 yo female resident of [facility] in [place] on vacation was admitted to [facility] on 06/25/17 because of confusion, visual hallucination and left sided headache. She was diagnosed with left occipital CVA when CT and MRI showed left occipital infarct. She was transferred to Acute Rehab for continue management PT. 1. Left Occipital CVA continue statin and ASA continue PT Dr Srivastava on physiatry consult Dr Larkin on neuro service 2. DMII relatively controlled continue Levemir and Metformin 3. HTN BP stable but on the low side continue Clonidine patch, HCTZ, Lisinopril and Metoprolol DC Amlodipine 4. DVt prophylaxis continue Lovenox
[2017-07-09] MEDS: Insulin Detemir 100 Units/ml Inj SC SCH (21:29)
[2017-07-10] MEDS: Insulin Regular 100 units/ml SC SCH ×4 (06:35→21:00)
[2017-07-10] MEDS: Insulin Detemir 100 Units/ml Inj SC SCH (21:40)
[2017-07-11] MEDS: Insulin Regular 100 units/ml SC SCH ×4 (06:35→21:00)
[2017-07-11] MEDS: Insulin Detemir 100 Units/ml Inj SC SCH (22:30)
[2017-07-12] MEDS: Insulin Regular 100 units/ml SC SCH ×4 (07:31→21:23)
[2017-07-12] MEDS: guaiFENesin 100 mg/5 ml Syrup UD PO PRN (17:23)
[2017-07-12] MEDS: Insulin Detemir 100 Units/ml Inj SC SCH (21:23)
[2017-07-13] MEDS: Insulin Regular 100 units/ml SC SCH ×2 (06:10→12:10)
[2017-07-13] MEDS: guaiFENesin 100 mg/5 ml Syrup UD PO PRN (06:38)
[2017-07-13 08:46] VITALS: BP 124/63; PULSE 68
[2017-07-13 08:55] VITALS: RESP 21; TEMP 98.2; O2SAT 97
--- NOTE | 2017-07-13 11:39 | CP.PCM.DIS ---
Provider - Provider Date of Admission: 07/01/17 23:32 Attending physician: Abraham Arias Consults: Dr Atif Larkin Time Spent in preparation of Discharge (in minutes): 25 Diagnosis - Discharge Diagnosis (1) Cerebrovascular accident Status: Acute Comment: left occipital CVA. did well with PT/OT. continue ASA and statin (2) DM2 (diabetes mellitus, type 2) Status: Chronic Comment: relatively controlled. continue Metformin (3) HTN (hypertension) Status: Chronic Comment: BP stable. continue Clonidine patch, HCTZ, Lisinopril and Metoprolol Hospital Course - Lab Results Lab Results: Most Recent Lab Values WBC 11.0 K/uL (4.8-10.8) H 07/03/17 08:03 RBC 3.22 Mil/uL (3.80-5.20) L 07/03/17 08:03 Hgb 9.3 g/dL (12.0-16.0) L 07/03/17 08:03 Hct 28.2 % (34.0-47.0) L 07/03/17 08:03 MCV 87.7 fl (81.0-99.0) 07/03/17 08:03 MCH 29.0 pg (27.0-31.0) 07/03/17 08:03 MCHC 33.0 g/dL (33.0-37.0) 07/03/17 08:03 RDW 14.6 % (11.5-14.5) H 07/03/17 08:03 Plt Count 206 K/uL (130-400) 07/03/17 08:03 MPV 8.8 fl (7.2-11.7) 07/02/17 05:56 Neut % (Auto) 88.8 % (50.0-75.0) H 07/02/17 05:56 Lymph % (Auto) 8.0 % (20.0-40.0) L 07/02/17 05:56 [place] % (Auto) 2.9 % (0.0-10.0) 07/02/17 05:56 Eos % (Auto) 0.0 % (0.0-4.0) 07/02/17 05:56 Baso % (Auto) 0.3 % (0.0-2.0) 07/02/17 05:56 Neut # 11.8 K/uL (1.8-7.0) H 07/02/17 05:56 Lymph # 1.1 K/uL (1.0-4.3) 07/02/17 05:56 [place] # 0.4 K/uL (0.0-0.8) 07/02/17 05:56 Eos # 0.0 K/uL (0.0-0.7) 07/02/17 05:56 Baso # 0.0 K/uL (0.0-0.2) 07/02/17 05:56 Neutrophils % (Manual) 91 % (42-75) H 07/02/17 05:56 Lymphocytes % (Manual) 7 % (20-50) L 07/02/17 05:56 Monocytes % (Manual) 2 % (0-10) 07/02/17 05:56 Platelet Estimate Normal (NORMAL) 07/02/17 05:56 Anisocytosis (manual) Slight 07/02/17 05:56 Ovalocytes Slight 07/02/17 05:56 Sodium 139 mmol/l (132-148) 07/03/17 08:03 Potassium 4.4 MMOL/L (3.6-5.0) 07/03/17 08:03 Chloride 107 mmol/L (98-107) 07/03/17 08:03 Carbon Dioxide 23 mmol/L (22-30) 07/03/17 08:03 Anion Gap 13 (10-20) 07/03/17 08:03 BUN 39 mg/dl (7-17) H 07/03/17 08:03 Creatinine 1.4 mg/dl (0.7-1.2) H 07/03/17 08:03 Est GFR ( Amer) 43 07/03/17 08:03 Est GFR (Non-Af Amer) 36 07/03/17 08:03 POC Glucose (mg/dL) 92 mg/dL (65-110) 07/13/17 06:09 Random Glucose 89 mg/dL (65-105) 07/03/17 08:03 Calcium 8.2 mg/dL (8.4-10.2) L 07/03/17 08:03 - Hospital Course Hospital Course: 82 yo female resident of [place] here in [place] on vacation was admitted to [facility] on 06/25/17 because of confusion, visual hallucination and left sided headache. CT and MRIof the head showed left occipital infarct. She was transferred to Acute Rehab PT and did well. Discharge Exam - Head Exam Head Exam: ATRAUMATIC, NORMAL INSPECTION, NORMOCEPHALIC - Eye Exam Eye Exam: absent: Scleral icterus - ENT Exam ENT Exam: Mucous Membranes Moist - Respiratory Exam Respiratory Exam: absent: Wheezes, Respiratory Distress - Cardiovascular Exam Cardiovascular Exam: REGULAR RHYTHM, +S1, +S2 - GI/Abdominal Exam GI & Abdominal Exam: Soft. absent: Tenderness - Rectal Exam Rectal Exam: Deferred - Neurological Exam Neurological exam: Alert, Oriented x3 - Psychiatric Exam Psychiatric exam: Normal Affect - Skin Skin Exam: Dry, Intact Discharge Plan - Follow Up Plan Condition: GOOD Disposition: HOME/ ROUTINE Instructions: Metoprolol (By mouth), Lisinopril (By mouth), Famotidine (By mouth), Hydrochlorothiazide (By mouth), Aspirin (By mouth), Antitussives (By mouth), Clonidine (Absorbed through the skin), Metformin (By mouth), Insulin Detemir (By injection), Asthma (DC), How to Check Your Blood Sugar (DC), Diabetes Mellitus Type 2 in Adults (DC), Ischemic Stroke (DC), Hemorrhagic Stroke (DC), Chronic Hypertension (DC), Hyperlipidemia (DC)
--- NOTE | 2017-07-13 12:35 | CP.PCM.PN ---
Subjective - Date & Time of Evaluation Date of Evaluation: 07/11/17 Time of Evaluation: 16:00 - Subjective Subjective: no acute complaints at present Objective - Vital Signs/Intake and Output Vital Signs (last 24 hours): Temp Pulse Resp BP Pulse Ox 98.2 F 68 21 124/63 97 07/13/17 08:54 07/13/17 08:54 07/13/17 08:54 07/13/17 08:54 07/13/17 08:54 - Medications Medications: Current Medications Albuterol/Ipratropium (Duoneb 3 Mg/0.5 Mg (3 Ml) Ud) 3 ml IH RQ6 PRN PRN Reason: Shortness of Breath Aspirin (Aspirin Chewable) 81 mg PO DAILY [facility] Last Admin: 07/13/17 08:44 Dose: 81 mg Clonidine HCl (Catapres-Tts3 0.3 Mg/24 Hr) 1 patch TD Q7D@1000 [facility] Last Admin: 07/11/17 09:13 Dose: 1 patch Famotidine (Pepcid) 20 mg PO Q12 [facility] Last Admin: 07/13/17 08:44 Dose: 20 mg Guaifenesin (Robitussin) 100 mg PO Q4 PRN PRN Reason: Cough Last Admin: 07/13/17 06:38 Dose: 100 mg Hydrochlorothiazide (Microzide) 12.5 mg PO DAILY [facility] Last Admin: 07/13/17 08:44 Dose: 12.5 mg Insulin Detemir (Levemir) 10 units SC HS [facility] Last Admin: 07/12/17 21:23 Dose: 10 units Insulin Human Regular (Humulin R) 0 units SC ACHS [facility] PRN Reason: Protocol Last Admin: 07/13/17 12:10 Dose: 2 units Lisinopril (Zestril) 20 mg PO DAILY [facility] Last Admin: 07/13/17 08:45 Dose: 20 mg Metformin HCl (Glucophage) 1,000 mg PO BID [facility] Last Admin: 07/13/17 08:44 Dose: 1,000 mg Metoprolol Tartrate (Lopressor) 25 mg PO Q12 [facility] Last Admin: 07/13/17 08:45 Dose: 25 mg - Labs Labs: 07/03/17 08:03 07/03/17 08:03 - Head Exam Head Exam: ATRAUMATIC, NORMAL INSPECTION, NORMOCEPHALIC - Eye Exam Eye Exam: EOMI, Normal appearance, PERRL Pupil Exam: NORMAL ACCOMODATION - ENT Exam ENT Exam: Mucous Membranes Moist, Normal Exam - Neck Exam Neck Exam: Full ROM, Normal Inspection - Respiratory Exam Respiratory Exam: NORMAL BREATHING PATTERN - Cardiovascular Exam Cardiovascular Exam: REGULAR RHYTHM - GI/Abdominal Exam GI & Abdominal Exam: Soft, Normal Bowel Sounds - Rectal Exam Rectal Exam: NORMAL INSPECTION - Exam External exam: NORMAL EXTERNAL EXAM - Extremities Exam Extremities Exam: Full ROM, Normal Capillary Refill, Normal Inspection - Back Exam Back Exam: NORMAL INSPECTION - Neurological Exam Neurological Exam: Alert, Awake Neuro motor strength exam: Left Upper Extremity: 3, Right Upper Extremity: 3, Left Lower Extremity: 3, Right Lower Extremity: 3 - Psychiatric Exam Psychiatric exam: Normal Affect, Normal Mood - Skin Skin Exam: Dry, Intact Assessment and Plan (1) Abdominal pain Status: Acute (2) Anemia Status: Acute (3) Cerebrovascular accident Assessment & Plan: plan for pt, ot and rec therapy Status: Acute (4) Dehydration Status: Acute (5) Headache Status: Acute (6) Hematuria Status: Acute (7) Hemianopia, homonymous, right Status: Acute (8) Hip injury Status: Acute
--- NOTE | 2017-07-13 12:37 | CP.PCM.PN ---
Subjective - Date & Time of Evaluation Date of Evaluation: 07/13/17 Time of Evaluation: 12:00 - Subjective Subjective: no acute complaints ready for Dc Objective - Vital Signs/Intake and Output Vital Signs (last 24 hours): Temp Pulse Resp BP Pulse Ox 98.2 F 68 21 124/63 97 07/13/17 08:54 07/13/17 08:54 07/13/17 08:54 07/13/17 08:54 07/13/17 08:54 - Medications Medications: Current Medications Albuterol/Ipratropium (Duoneb 3 Mg/0.5 Mg (3 Ml) Ud) 3 ml IH RQ6 PRN PRN Reason: Shortness of Breath Aspirin (Aspirin Chewable) 81 mg PO DAILY [facility] Last Admin: 07/13/17 08:44 Dose: 81 mg Clonidine HCl (Catapres-Tts3 0.3 Mg/24 Hr) 1 patch TD Q7D@1000 [facility] Last Admin: 07/11/17 09:13 Dose: 1 patch Famotidine (Pepcid) 20 mg PO Q12 [facility] Last Admin: 07/13/17 08:44 Dose: 20 mg Guaifenesin (Robitussin) 100 mg PO Q4 PRN PRN Reason: Cough Last Admin: 07/13/17 06:38 Dose: 100 mg Hydrochlorothiazide (Microzide) 12.5 mg PO DAILY [facility] Last Admin: 07/13/17 08:44 Dose: 12.5 mg Insulin Detemir (Levemir) 10 units SC HS [facility] Last Admin: 07/12/17 21:23 Dose: 10 units Insulin Human Regular (Humulin R) 0 units SC ACHS [facility] PRN Reason: Protocol Last Admin: 07/13/17 12:10 Dose: 2 units Lisinopril (Zestril) 20 mg PO DAILY [facility] Last Admin: 07/13/17 08:45 Dose: 20 mg Metformin HCl (Glucophage) 1,000 mg PO BID [facility] Last Admin: 07/13/17 08:44 Dose: 1,000 mg Metoprolol Tartrate (Lopressor) 25 mg PO Q12 [facility] Last Admin: 07/13/17 08:45 Dose: 25 mg - Labs Labs: 07/03/17 08:03 07/03/17 08:03 - Head Exam Head Exam: ATRAUMATIC, NORMAL INSPECTION, NORMOCEPHALIC - Eye Exam Eye Exam: EOMI, Normal appearance, PERRL Pupil Exam: NORMAL ACCOMODATION - ENT Exam ENT Exam: Mucous Membranes Moist, Normal Exam - Neck Exam Neck Exam: Full ROM, Normal Inspection - Respiratory Exam Respiratory Exam: NORMAL BREATHING PATTERN - Cardiovascular Exam Cardiovascular Exam: REGULAR RHYTHM - GI/Abdominal Exam GI & Abdominal Exam: Soft, Normal Bowel Sounds - Rectal Exam Rectal Exam: NORMAL INSPECTION - Exam External exam: NORMAL EXTERNAL EXAM - Extremities Exam Extremities Exam: Full ROM, Normal Capillary Refill, Normal Inspection - Back Exam Back Exam: NORMAL INSPECTION - Neurological Exam Neurological Exam: Alert, Awake Neuro motor strength exam: Left Upper Extremity: 3, Right Upper Extremity: 3, Left Lower Extremity: 3, Right Lower Extremity: 3 - Psychiatric Exam Psychiatric exam: Normal Affect, Normal Mood - Skin Skin Exam: Dry, Intact Assessment and Plan (1) Abdominal pain Status: Acute (2) Anemia Status: Acute (3) Cerebrovascular accident Assessment & Plan: patinet for discharge today follow up with PMD and services after Dc Status: Acute (4) Dehydration Status: Acute (5) Headache Status: Acute (6) Hematuria Status: Acute (7) Hemianopia, homonymous, right Status: Acute (8) Hip injury Status: Acute
== END 2017-07-13 14:30 | disposition home health service (06) | DRG 57 ==
PROVIDERS: ADMIT Internal Medicine; ATTEND Internal Medicine
PROC: F07Z9FZ Gait Training/Functional Ambulation Treatment using Assistive, Adaptive, Supportive or Protective Equipment (ICD-10-PCS; principal; 2017-07-01)
PROC: F08Z4FZ Home Management Treatment using Assistive, Adaptive, Supportive or Protective Equipment (ICD-10-PCS; 2017-07-01)
PROC: F07J6FZ Therapeutic Exercise Treatment of Musculoskeletal System - Head and Neck using Assistive, Adaptive, Supportive or Protective Equipment (ICD-10-PCS; 2017-07-01)
DX: I69.198 Other sequelae of nontraumatic intracerebral hemorrhage (principal); D64.9 Anemia, unspecified; H53.461 Homonymous bilateral field defects, right side; E11.319 Type 2 diabetes mellitus with unspecified diabetic retinopathy without macular edema; J44.9 Chronic obstructive pulmonary disease, unspecified; B36.9 Superficial mycosis, unspecified; E78.5 Hyperlipidemia, unspecified; N39.0 Urinary tract infection, site not specified; I10 Essential (primary) hypertension; N32.81 Overactive bladder; Z87.01 Personal history of pneumonia (recurrent); Z87.891 Personal history of nicotine dependence; Z79.4 Long term (current) use of insulin